=== PATIENT | female | born 1985 ===

== ENCOUNTER 2016-11-08 18:57 | Emergency (ER) | payer OTHER ==
[2016-11-08 19:18] VITALS: BP 114/68; PULSE 120; RESP 20; TEMP 98.6; O2SAT 99
--- NOTE | 2016-11-08 20:12 | ED PDOC ---
HPI: Abdomen Time Seen by Provider: 11/08/16 19:52 Chief Complaint (Nursing): Abdominal Pain History Per: Patient History/Exam Limitations: no limitations Onset/Duration Of Symptoms: Days Outside of [place] travel?: No Current Symptoms Are (Timing): Still Present Severity: None Location Of Pain/Discomfort: LUQ Quality Of Discomfort: Dull Associated Symptoms: Nausea, Vomiting. denies: Fever, Chills Exacerbating Factors: Movement, Upright Position Alleviating Factors: Rest Last Bowel Movement: Today Additional History Per: Patient Additional Complaint(s): 2 days of LUQ/L flank pain, pt. states she's never had it before, also w/ nausea and vomiting, no fevers. Normal urinary pattern. Normal BM's. No fevers. No abd surgeries. No recent travel. Past Medical History Reviewed: Historical Data, Nursing Documentation, Vital Signs Vital Signs: Last Vital Signs Temp 98.6 F 11/08/16 19:16 Pulse 120 H 11/08/16 19:16 Resp 20 11/08/16 19:16 BP 114/68 11/08/16 19:16 Pulse Ox 99 11/08/16 20:12 - Medical History PMH: No Chronic Diseases - Surgical History Surgical History: No Surg Hx - Family History Family History: States: No Known Family Hx - Home Medications Home Medications: Ambulatory Orders Medication Instructions Recorded Cyclobenzaprine [Cyclobenzaprine 10 mg PO BID #15 tab 11/08/16 HCl] Ibuprofen [Motrin Tab] 600 mg PO Q6 #30 tab 11/08/16 - Allergies Allergies/Adverse Reactions: Allergies Allergy/AdvReac Type Severity Reaction Status Date / Time No Known Allergies Allergy Verified 11/08/16 19:16 Review of Systems ROS Statement: Except As Marked, All Systems Reviewed And Found Negative Gastrointestinal: Positive for: Nausea, Vomiting, Abdominal Pain Physical Exam - Reviewed Nursing Documentation Reviewed: Yes Vital Signs Reviewed: Yes - Physical Exam Appears: Positive for: Well, Non-toxic, No Acute Distress Head Exam: Positive for: ATRAUMATIC, NORMAL INSPECTION, NORMOCEPHALIC Skin: Positive for: Normal Color, Warm, DRY Eye Exam: Positive for: EOMI, Normal appearance, PERRL ENT: Positive for: Normal ENT Inspection Neck: Positive for: Normal, Painless ROM Cardiovascular/Chest: Positive for: Regular Rate, Rhythm Respiratory: Positive for: CNT, Normal Breath Sounds Gastrointestinal/Abdominal: Positive for: Soft, Tenderness (LUQ TTP, L flank TTP ). Negative for: Guarding, Hernia Back: Positive for: Normal Inspection Extremity: Positive for: Normal ROM Neurologic/Psych: Positive for: Alert, Oriented - Laboratory Results Result Diagrams: 11/08/16 20:40 11/08/16 20:40 - ECG O2 Sat by Pulse Oximetry: 99 Pulse Ox Interpretation: Normal Medical Decision Making Medical Decision Making: Pt. w/ LUQ pain, L flank- pyelo v. stone v. msk 930PM: U/S negative, patient feeling better, likely pain is MSK. Will d/c home w/ NSAID and flexeril. Return precautions given. Encouraged f/u w/ clinic Disposition - Clinical Impression Clinical Impression: Flank pain - Disposition Referrals: [facility] [Outside] Disposition Time: 21:30 Condition: STABLE Prescriptions: Cyclobenzaprine [Cyclobenzaprine HCl] 10 mg PO BID #15 tab Ibuprofen [Motrin Tab] 600 mg PO Q6 #30 tab Instructions: Flank Pain (ED), Muscle Cramp (ED) Forms: [facility] ([employer]) Print Language: TAMAZIGHT
[2016-11-08 20:50] LABS: BASO # 0.1 K/uL (0.0-0.2); BASO % 0.7 % (0.0-2.0); EOS # 0.2 K/uL (0.0-0.7); EOS % 1.7 % (0.0-4.0); LYMPH # 2.4 K/uL (1.0-4.3); LYMPH % 28.2 % (20.0-40.0); MEAN CELL VOLUME 86.6 fl (81.0-99.0); MEAN CORPUSCULAR HEMOGLOBIN 29.1 pg (27.0-31.0); MEAN CORPUSCULAR HGB CONC 33.7 g/dL (33.0-37.0); MEAN PLATELET VOLUME 9.3 fl (7.2-11.7); MONO # 0.7 K/uL (0.0-0.8); MONO % 7.6 % (0.0-10.0); NEUT # 5.3 K/uL (1.8-7.0); NEUT % 61.8 % (50.0-75.0); NRBC % 0.1 % (0.0-0.0); RED CELL DISTRIBUTION WIDTH 13.4 % (11.5-14.5); WHITE BLOOD COUNT 8.7 K/uL (4.8-10.8)
[2016-11-08 20:51] LABS: RBC URINE 1 /hpf (0-3); URINE BILIRUBIN NEGATIVE (NEGATIVE); URINE BLOOD NEGATIVE (NEGATIVE); URINE COLOR STRAW (YELLOW); URINE GLUCOSE (UA) NEG (Normal); URINE KETONE NEGATIVE (NEGATIVE); URINE LEUKOCYTE ESTERASE NEG Leu/uL (Negative); URINE PROTEIN NEGATIVE (NEGATIVE); URINE UROBILINOGEN 0.2-1.0 mg/dL (0.2-1.0); WBC URINE 1 /hpf (0-5)
[2016-11-08 20:58] LABS: ALKALINE PHOSPHATASE 65 U/L (38-126); ALT/SGPT 27 U/L (9-52); BILIRUBIN,TOTAL 0.4 mg/dl (0.2-1.3); BLOOD UREA NITROGEN 14 mg/dl (7-17); CALCIUM 9.1 mg/dL (8.4-10.2); CHLORIDE 106 mmol/L (98-107); POTASSIUM 3.9 MMOL/L (3.6-5.0); SODIUM 139 mmol/l (132-148)
[2016-11-08 20:59] LABS: AST/SGOT 23 U/L (14-36); GFR AFRICAN-AMERICAN > 60
[2016-11-08 21:00] LABS: TOTAL PROTEIN 7.3 G/DL (6.3-8.2)
[2016-11-08 21:01] LABS: CARBON DIOXIDE 24 mmol/L (22-30)
[2016-11-08 21:09] LABS: ALB/GLOB RATIO 1.4 (1.0-2.1); GLUCOSE,RANDOM 88 mg/dL (65-105)
--- NOTE | 2016-11-08 21:11 | US ---
EXAM: US Abdomen Limited CLINICAL HISTORY: 30 years old, female; Pain; Other: Luq/ltg flank pain; Additional info: Luq, l flank pain TECHNIQUE: Real-time ultrasound of the LEFT upper quadrant (limited) with image documentation. COMPARISON: No relevant prior studies available. FINDINGS: LEFT kidney: Normal echogenicity. 0.9 cm cyst. No calculi. No hydronephrosis. Spleen: No splenomegaly. Free fluid: No significant free fluid. IMPRESSION: 1.No acute findings.
== END 2016-11-08 22:13 | disposition home or self-care (01) ==
LOC: H.ER 18:57
DX: R10.12 Left upper quadrant pain (principal)
CPT/HCPCS: 76705; 80048; 80076; 81003; 81025; 85025; 87086; 96374; 96375; 99282; J1885; J2405